=== PATIENT | female | born 1955 | race Caucasian/White ===

== ENCOUNTER 2018-06-24 13:55 | Outpatient (CLI) | payer MEDICARE | END 2018-06-24 13:56 | disposition home or self-care (01) | LOC: BICMAMMO 13:55 | PROVIDERS: ATTEND Physician Assistant | DX: Z12.31 Encounter for screening mammogram for malignant neoplasm of breast (principal); Z80.3 Family history of malignant neoplasm of breast | CPT/HCPCS: 77063; 77067 ==

== ENCOUNTER 2019-04-02 02:16 | Emergency (ER) | payer MEDICARE ==
--- NOTE | 2019-04-02 08:43 | RAD ---
RIGHT ANKLE 3 VIEWS: HISTORY: Fall, pain. COMPARISON: None. FINDINGS: There is marked lateral soft tissue swelling. Chronic changes involving the medial and lateral malle olus. Remote avulsive injuries may be present. No acute fracture is appreciated. There is a lucency with subtle expansion involving the proximal third metatarsal, incompletely evalua roger. Dedicated right foot radiograph is recommended. IMPRESSION: 1. Soft tissue swelling. 2. Remote medial and lateral malleolar avulsive injuries. 3. Lucent lesion with expansion of the left third metatarsal. Dedicated right foot radiograph sererica s is recommended. CODE T POS: OFF
== END 2019-04-02 03:08 | disposition home or self-care (01) ==
LOC: ERS 02:16
DX: S93.401A Sprain of unspecified ligament of right ankle, initial encounter (principal)

== ENCOUNTER 2019-08-03 09:46 | Outpatient (CLI) | payer MEDICARE ==
--- NOTE | 2019-08-03 10:52 | MRI ---
EXAM: Right ankle MRI without contrast: HISTORY: Right ankle pain, sprain right ankle COMPARISON: None. FINDINGS: Multiplanar, multisequence MRI examination of the ankle is performed. The flexor, extensor, and peroneus tendons are intact. There is marked abnormal thickening and increased signal in the anterior talofibular ligament evidenc e for extensive sprain. The posterior talofibular ligament and calcaneofibular ligaments appear intact. Heterogeneity of signal within the deltoid ligament with 2 foci of calcification or ossification evid ence for prior remote deltoid ligament injury/sprain. The Achilles tendon and plantar fascia are unremarkable. Small calcaneal Achilles and plantar enthesophytes without abnormal marrow signal. Sinus Tarsi and spring ligament regions are unremarkable. No acute osteochondral lesion. No evidence for abnormal marrow signal. 0.7 x 1.3 cm diameter circumscribed T1 hypointense, T2 hyperintense focus in the base of the fourth m etatarsal evidence for nonspecific interosseous cyst without adjacent marrow edema. 0.8 x 1.6 cm diameter circumscribed T1 hypointense T2 heterogeneous hyperintense focus in the base of the third metatarsal without adjacent edema evidence for nonspecific interosseous cyst. IMPRESSION: Marked thickening and increased signal of the anterior talofibular ligament evidence for sprain. Heterogeneous signal and ligamentous calcific/ossific foci in the deltoid ligament evidence for remot e sprain. Nonspecific interosseous cystic changes in the base of the third and fourth metatarsals. Other findin gs as above.
== END 2019-08-03 09:47 | disposition home or self-care (01) ==
LOC: BICMRI 09:46
PROVIDERS: ATTEND Orthopaedic Surgery
DX: S93.491D Sprain of other ligament of right ankle, subsequent encounter (principal)

== ENCOUNTER 2019-08-12 10:46 | Outpatient (CLI) | payer MEDICARE ==
--- NOTE | 2019-08-12 13:25 | MMO ---
Bilateral MAMMO Bilat Screen [facility]. CLINICAL HISTORY: Patient is 64 years old and is seen for screening. The patient has the following family history of breast cancer: sister. The patient has no personal history of cancer. VIEWS: The views performed were: bilateral craniocaudal with tomosynthesis and bilateral mediolateral oblique with tomosynthesis. FILMS COMPARED: The present examination has been compared to prior imaging studies performed at [facility] on 10/04/2010, 10/15/2011, 10/22/2012 and 06/24/2018. This study has been interpreted with the assistance of computer-aided detection. MAMMOGRAM FINDINGS: There are scattered fibroglandular densities. There are no suspicious masses, suspicious calcifications, or new areas of architectural distortion. IMPRESSION: THERE IS NO MAMMOGRAPHIC EVIDENCE OF MALIGNANCY. A ROUTINE FOLLOW-UP MAMMOGRAM IN 1 YEAR IS RECOMMENDED. THE RESULTS OF THIS EXAM WERE SENT TO THE PATIENT. ACR BI-RADS Category 1 - Negative MAMMOGRAPHY NOTE: 1. A negative mammogram report should not delay a biopsy if a dominant of clinically suspicious mass is present. 2. Approximately 10% to 15% of breast cancers are not detected by mammography. 3. Adenosis and dense breasts may obscure an underlying neoplasm. Reported by: DIANN GARCIA MD Electonically Signed: [id number]
== END 2019-08-12 10:47 | disposition home or self-care (01) ==
LOC: BICMAMMO 10:46
PROVIDERS: ATTEND Family Medicine
DX: Z12.31 Encounter for screening mammogram for malignant neoplasm of breast (principal); Z80.3 Family history of malignant neoplasm of breast
CPT/HCPCS: 77063; 77067

== ENCOUNTER 2020-08-21 11:54 | Outpatient (CLI) | payer MEDICARE ==
--- NOTE | 2020-08-21 12:28 | MMO ---
Bilateral MAMMO Bilat Screen [facility]. CLINICAL HISTORY: Patient is 65 years old and is seen for screening. The patient has the following family history of breast cancer: sister. The patient has no personal history of cancer. VIEWS: The views performed were: bilateral craniocaudal with tomosynthesis and bilateral mediolateral oblique with tomosynthesis. FILMS COMPARED: The present examination has been compared to prior imaging studies performed at [facility] on 10/15/2011, 10/22/2012, 06/24/2018 and 08/12/2019. This study has been interpreted with the assistance of computer-aided detection. MAMMOGRAM FINDINGS: There are scattered fibroglandular densities. There are no suspicious masses, suspicious calcifications, or new areas of architectural distortion. IMPRESSION: THERE IS NO MAMMOGRAPHIC EVIDENCE OF MALIGNANCY. A ROUTINE FOLLOW-UP MAMMOGRAM IN 1 YEAR IS RECOMMENDED. THE RESULTS OF THIS EXAM WERE SENT TO THE PATIENT. ACR BI-RADS Category 1 - Negative MAMMOGRAPHY NOTE: 1. A negative mammogram report should not delay a biopsy if a dominant of clinically suspicious mass is present. 2. Approximately 10% to 15% of breast cancers are not detected by mammography. 3. Adenosis and dense breasts may obscure an underlying neoplasm. Reported by: ADONIS BOYCE MD Electonically Signed: [id number]
== END 2020-08-21 11:55 | disposition home or self-care (01) ==
LOC: BICMAMMO 11:54
PROVIDERS: ATTEND Physician Assistant
DX: Z12.31 Encounter for screening mammogram for malignant neoplasm of breast (principal); Z80.3 Family history of malignant neoplasm of breast
CPT/HCPCS: 77063; 77067

== ENCOUNTER 2021-08-22 14:51 | Outpatient (CLI) | payer MEDICARE | END 2021-08-22 14:52 | disposition home or self-care (01) | LOC: BICMAMMO 14:51 | PROVIDERS: ATTEND Physician Assistant | DX: Z12.31 Encounter for screening mammogram for malignant neoplasm of breast (principal); Z80.3 Family history of malignant neoplasm of breast | CPT/HCPCS: 77063; 77067 ==

== ENCOUNTER 2021-12-18 09:51 | Outpatient (CLI) | payer MEDICARE | END 2021-12-18 09:52 | disposition home or self-care (01) | LOC: BICMAMMO 09:51 | PROVIDERS: ATTEND Physician Assistant | DX: Z13.820 Encounter for screening for osteoporosis (principal); Z78.0 Asymptomatic menopausal state | CPT/HCPCS: 77080 ==

== ENCOUNTER 2022-07-14 12:28 | Outpatient (CLI) | payer MEDICAID, MEDICARE | END 2022-07-14 12:29 | disposition home or self-care (01) | LOC: BICRAD 12:28 | PROVIDERS: ATTEND Physician Assistant | DX: J06.9 Acute upper respiratory infection, unspecified (principal); J45.40 Moderate persistent asthma, uncomplicated | CPT/HCPCS: 71046 ==

== ENCOUNTER 2023-05-13 06:29 | Day surgery (SDC) | payer MEDICARE ==
[2023-05-11 11:14] VITALS: BMI 45.1
[2023-05-11 11:40] LABS: Hemoglobin 13.3 g/dL (12.0-15.5); Mean Corpuscular HGB CONC 32.4 g/dL (32.0-36.0); Mean Corpuscular Hemoglobin 29.6 pg (27.0-33.0); Mean Corpuscular Volume 91.1 fl (81.6-98.3); Mean Platelet Volume 9.6 fl (7.4-10.4); Platelet Count 269 10x3/uL (150-450); RBC Distribution Width 12.3 % (11.5-14.5); White Blood Cell (WBC) Count 6.7 10x3/uL (3.5-10.5)
[2023-05-11 11:59] LABS: INR-International Normal Ratio 1.1; PTT 33.6 sec (22.0-33.0); Prothrombin Time 11.3 sec (9.5-12.1)
[2023-05-11 13:10] LABS: ALT (SGPT) 36 U/L (8-55); AST (SGOT) 30 U/L (5-34); Albumin 4.3 g/dL (3.4-4.8); Alkaline Phosphatase 119 U/L (40-110); Anion Gap 14 mmol/L (10-20); BUN (Urea Nitrogen) 17 mg/dL (9.8-20.1); Bilirubin, Direct 0.2 mg/dL (0.1-0.3); Bilirubin, Total 0.5 mg/dL (0.2-1.2); Calc. Creatinine Clearance 109 mL/min (70-130); Calcium 9.3 mg/dL (7.8-10.44); Carbon Dioxide 29 mmol/L (23-31); Chloride 102 mmol/L (98-107); Estimated GFR 66; Glucose 97 mg/dL (80-115); Potassium 4.6 mmol/L (3.5-5.1); Protein, Total 7.3 g/dL (5.8-8.1); Sodium 140 mmol/L (136-145)
[2023-05-13] MEDS ORDERED: fentaNYL 50 mcg/mL 1 mL Vial ONE ×3 (07:04→12:54)
[2023-05-13] MEDS ORDERED: Heparin 10,000 UNITS/ 10 ML VIAL ONE (07:11)
[2023-05-13] MEDS ORDERED: Heparin 25,000 units/D5W 500 ML ONE (07:11)
[2023-05-13] MEDS ORDERED: fentaNYL PF 100 MCG/2 ML SYRINGE ONE (07:12)
[2023-05-13] MEDS ORDERED: Famotidine/PF 20 mg/2ml Vial ONE (08:03)
[2023-05-13] MEDS ORDERED: ePHEDrine Sulfate 50 MG/10 ML VIAL ONE (08:07)
[2023-05-13] MEDS ORDERED: PROPOFOL 200 MG/20 ML VIAL ONE (08:07)
[2023-05-13] MEDS ORDERED: Ondansetron PF 4 MG/2 ML Vial ONE (08:07)
[2023-05-13] MEDS ORDERED: PHENYLEPHRINE-NS 100 MCG/ML 10 ML SYRINGE ONE (08:07)
[2023-05-13] MEDS ORDERED: Dexamethasone 20 MG/5 ML VIAL ONE (08:07)
[2023-05-13] MEDS ORDERED: Rocuronium Bromide 10 MG/ML (10ML VIAL) ONE (08:07)
[2023-05-13] MEDS ORDERED: Lidocaine 1% PF 5 ML VIAL ONE (08:07)
[2023-05-13] MEDS ORDERED: SUGAMMADEX SODIUM 200 MG/2 ML VIAL ONE ×2 (09:27→11:12)
[2023-05-13] MEDS ORDERED: Isoproterenol 0.2 MG/1 ML AMP ONE (10:11)
[2023-05-13] MEDS ORDERED: Protamine Sulfate 50 MG/5 ML VIAL ONE (11:12)
[2023-05-13] MEDS ORDERED: Amiodarone 150 MG/3 ML VIAL ONE (11:25)
== END 2023-05-13 15:45 | disposition home or self-care (01) ==
LOC: SDC 06:29
PROVIDERS: ATTEND Internal Medicine Cardiovascular Disease
DX: I48.0 Paroxysmal atrial fibrillation (principal); I10 Essential (primary) hypertension; E66.01 Morbid (severe) obesity due to excess calories; Z68.42 Body mass index [BMI] 45.0-49.9, adult; Z79.82 Long term (current) use of aspirin; Z88.0 Allergy status to penicillin; Z87.891 Personal history of nicotine dependence; Z79.01 Long term (current) use of anticoagulants; Z79.899 Other long term (current) drug therapy
CPT/HCPCS: 80048; 80076; 85027; 85347 ×2; 85610; 85730; 93005; 93623; 93656; 93657; C1732 ×3; C1759; C1760; C1894 ×2; J3010; 93010; J0282; J1100; J1644; J2405; J2704; J2720; S0028

== ENCOUNTER 2023-11-20 10:32 | Observation (INO) | payer MEDICARE, MEDICAID ==
[2023-11-20 11:25] LABS: #Basophils 0.1 thou/uL (0.0-0.2); #Eosinphils 0.3 thou/uL (0.0-0.7); #Monocytes 0.8 thou/uL (0.11-0.59); #Neutrophils 6.1 thou/uL (1.40-6.50); %Basophils 0.9 % (0.0-1.0); %Eosinophils 2.6 % (0.0-10.0); %Lymphocytes 24.9 % (21.0-51.0); %Monocytes 8.3 % (0.0-10.0); %Neutrophils 62.9 % (42.0-75.0); Hematocrit 43.1 % (36.0-47.0); Hemoglobin 13.9 g/dL (12.0-16.0); Mean Corpuscular HGB CONC 32.3 g/dL (32.0-36.0); Mean Platelet Volume 9.1 fL (7.4-10.4); Platelet Count 294 10x3/uL (130-400); RBC Distribution Width 13.1 % (11.5-14.5); Red Blood Cell (RBC) Count 4.79 mill/uL (4.20-5.40); White Blood Cell (WBC) Count 9.7 10x3/uL (4.8-10.8)
[2023-11-20 11:37] LABS: ALT (SGPT) 22 U/L (8-55); AST (SGOT) 16 U/L (5-34); Alkaline Phosphatase 105 U/L (40-110); Anion Gap 16 mmol/L (10-20); BUN (Urea Nitrogen) 24 mg/dL (9.8-20.1); Bilirubin, Total 0.6 mg/dL (0.2-1.2); Calc. Creatinine Clearance 0 mL/min (70-130); Calcium 9.2 mg/dL (7.8-10.44); Carbon Dioxide 21 mmol/L (23-31); Chloride 103 mmol/L (98-107); Estimated GFR 49; Globulin 3.5 g/dL (2.4-3.5); Glucose 119 mg/dL (80-115); Lipase 17 U/L (8-78); Potassium 4.1 mmol/L (3.5-5.1); Protein, Total 7.5 g/dL (5.8-8.1); Sodium 136 mmol/L (136-145)
[2023-11-20 11:41] LABS: Troponin I Less than 0.010 ng/mL (< 0.028)
[2023-11-20 11:48] LABS: Bilirubin Negative (Negative); Blood, Urine Negative (Negative); Glucose, Urine (Dipstick) Negative (Negative); Ketone, Urine Trace mg/dL (Negative); Leukocyte Negative (Negative); Nitrite Negative (Negative); Protein, Urine (Dipstick) Negative (Neg-Trace); Specific Gravity, Urine 1.025 (1.005-1.030); Urobilinogen 0.2 mg/dL (Less than 2)
[2023-11-20 11:51] LABS: Clarity Clear (Clear)
[2023-11-20 12:08] LABS: Bacteria/HPF 2+ HPF (None Seen); CAUTI Indications for Culture Alt mental st,lethar; RBC/HPF None Seen HPF (0-3)
[2023-11-20 12:10] LABS: Urine Culture Reflex No No
[2023-11-20] MEDS ORDERED: Ondansetron PF 4 MG/2 ML Vial IVP PRN (14:41)
[2023-11-20] MEDS ORDERED: Ondansetron ODT 4 MG TAB PO PRN (14:41)
[2023-11-20] MEDS ORDERED: Acetaminophen 325 MG TAB PO PRN (14:41)
[2023-11-20] MEDS ORDERED: Acetaminophen 650 MG Suppository PR PRN (14:41)
[2023-11-20 16:49] LABS: Troponin I Less than 0.010 ng/mL (< 0.028)
[2023-11-20 17:59] LABS: Troponin I 0.016 ng/mL (< 0.028)
[2023-11-20] MEDS: Apixaban 5 MG TAB PO SCH (20:26)
[2023-11-20] MEDS: Sodium Chloride 0.9% 1,000 ML IV SCH ×2 (20:33→21:39)
[2023-11-20 20:48] VITALS: BMI 45.1
[2023-11-20] MEDS ORDERED: Aspirin 81 mg Enteric Coated Tablet PO SCH (21:00)
[2023-11-20] MEDS ORDERED: Atorvastatin Calcium 10 MG TAB PO SCH (21:00)
[2023-11-20] MEDS ORDERED: hydrALAZINE 25 MG TAB PO SCH (21:30)
[2023-11-21] MEDS: Sodium Chloride 0.9% 1,000 ML IV SCH ×2 (03:50→08:03)
[2023-11-21] MEDS ORDERED: Levothyroxine Sodium 100 MCG TAB PO SCH (06:00)
[2023-11-21 06:37] LABS: #Basophils 0.1 thou/uL (0.0-0.2); #Eosinphils 0.3 thou/uL (0.0-0.7); #Monocytes 0.8 thou/uL (0.11-0.59); #Neutrophils 4.6 thou/uL (1.40-6.50); %Eosinophils 3.7 % (0.0-10.0); %Lymphocytes 34.3 % (21.0-51.0); %Monocytes 9.4 % (0.0-10.0); %Neutrophils 51.2 % (42.0-75.0); Hemoglobin 13.2 g/dL (12.0-16.0); Mean Corpuscular HGB CONC 31.4 g/dL (32.0-36.0); Mean Corpuscular Hemoglobin 28.9 pg (27.0-31.0); Mean Corpuscular Volume 92.1 fl (78.0-98.0); Mean Platelet Volume 9.5 fL (7.4-10.4); Platelet Count 272 10x3/uL (130-400); RBC Distribution Width 13.2 % (11.5-14.5); Red Blood Cell (RBC) Count 4.56 mill/uL (4.20-5.40); White Blood Cell (WBC) Count 8.9 10x3/uL (4.8-10.8)
[2023-11-21 07:06] LABS: Anion Gap 14 mmol/L (10-20); BUN (Urea Nitrogen) 17 mg/dL (9.8-20.1); Calc. Creatinine Clearance 102 mL/min (70-130); Calcium 8.7 mg/dL (7.8-10.44); Carbon Dioxide 26 mmol/L (23-31); Chloride 102 mmol/L (98-107); Estimated GFR 61; Glucose 92 mg/dL (80-115); Potassium 3.9 mmol/L (3.5-5.1); Sodium 138 mmol/L (136-145)
[2023-11-21] MEDS: Apixaban 5 MG TAB PO SCH (08:08)
[2023-11-21] MEDS ORDERED: Sertraline 100 MG TAB PO SCH (09:00)
[2023-11-21 13:04] LABS: Magnesium 2.4 mg/dL (1.6-2.6)
[2023-11-21 15:57] VITALS: BP 145/68; TEMP 98.8
== END 2023-11-21 18:10 | disposition home or self-care (01) ==
LOC: ERS 10:32 → ERHOLD 13:22 → 2SW 19:59
PROVIDERS: ADMIT Hospitalist; ATTEND Internal Medicine
PROC: B24BZZZ Ultrasonography of Heart with Aorta (ICD-10-PCS; principal; 2023-11-21)
DX: E86.0 Dehydration (principal); I48.0 Paroxysmal atrial fibrillation; I12.9 Hypertensive chronic kidney disease with stage 1 through stage 4 chronic kidney disease, or unspecified chronic kidney disease; N18.2 Chronic kidney disease, stage 2 (mild); E03.9 Hypothyroidism, unspecified; E78.5 Hyperlipidemia, unspecified; F41.9 Anxiety disorder, unspecified; E66.01 Morbid (severe) obesity due to excess calories; I35.0 Nonrheumatic aortic (valve) stenosis; Z98.890 Other specified postprocedural states; Z79.01 Long term (current) use of anticoagulants; Z79.82 Long term (current) use of aspirin; Z79.890 Hormone replacement therapy; Z79.899 Other long term (current) drug therapy; Z88.0 Allergy status to penicillin; Z88.2 Allergy status to sulfonamides; Z88.1 Allergy status to other antibiotic agents; Z91.040 Latex allergy status; Z68.42 Body mass index [BMI] 45.0-49.9, adult; Z88.8 Allergy status to other drugs, medicaments and biological substances
CPT/HCPCS: 71045; 80048; 80053; 81001; 83690; 83735; 83880; 84484 ×2; 85025 ×2; 93005; 93306; 96360; 99285; G0378 ×2; 36415; J7050

== ENCOUNTER 2024-01-20 07:13 | Day surgery (SDC) | payer MEDICARE ==
[2024-01-15 11:06] VITALS: BMI 45.2
[2024-01-15 11:49] LABS: Hematocrit 40.5 % (34.9-44.5); Hemoglobin 13.4 g/dL (12.0-15.5); Mean Corpuscular HGB CONC 33.1 g/dL (32.0-36.0); Mean Corpuscular Hemoglobin 29.3 pg (27.0-33.0); Mean Corpuscular Volume 88.6 fl (81.6-98.3); Mean Platelet Volume 9.6 fl (7.4-10.4); Platelet Count 297 10x3/uL (150-450); RBC Distribution Width 12.8 % (11.5-14.5); Red Blood Cell (RBC) Count 4.57 10x6/uL (3.90-5.03); White Blood Cell (WBC) Count 6.4 10x3/uL (3.5-10.5)
[2024-01-15 12:07] LABS: INR-International Normal Ratio 1.1; PTT 33.7 sec (22.0-33.0); Prothrombin Time 11.4 sec (9.5-12.1)
[2024-01-15 13:19] LABS: Anion Gap 13 mmol/L (10-20); BUN (Urea Nitrogen) 16 mg/dL (9.8-20.1); Calc. Creatinine Clearance 99 mL/min (70-130); Calcium 9.2 mg/dL (7.8-10.44); Carbon Dioxide 28 mmol/L (23-31); Chloride 100 mmol/L (98-107); Estimated GFR 58; Glucose 96 mg/dL (80-115); Potassium 4.3 mmol/L (3.5-5.1); Sodium 137 mmol/L (136-145)
[2024-01-20] MEDS ORDERED: Protamine Sulfate 50 MG/5 ML VIAL ONE ×2 (09:08→13:45)
[2024-01-20] MEDS ORDERED: Isoproterenol 0.2 MG/1 ML AMP ONE ×2 (09:08→11:27)
[2024-01-20] MEDS ORDERED: Heparin 25,000 units/D5W 500 ML ONE (09:08)
[2024-01-20] MEDS ORDERED: Heparin 10,000 UNITS/ 10 ML VIAL ONE (09:08)
[2024-01-20] MEDS ORDERED: PHENYLEPHRINE-NS 100 MCG/ML 10 ML SYRINGE ONE (10:39)
[2024-01-20] MEDS ORDERED: Lidocaine 1% PF 5 ML VIAL ONE (10:39)
[2024-01-20] MEDS ORDERED: PROPOFOL 200 MG/20 ML VIAL ONE (10:39)
[2024-01-20] MEDS ORDERED: SUCCINYLCHOLINE/SOD CL,ISO/PF 200 MG/10 ML SYRINGE FS ONE (10:39)
[2024-01-20] MEDS ORDERED: fentaNYL 50 mcg/mL 1 mL Vial ONE (14:58)
== END 2024-01-20 18:25 | disposition home or self-care (01) ==
LOC: SDC 07:13
PROVIDERS: ATTEND Internal Medicine Cardiovascular Disease
PROC: 02583ZZ Destruction of Conduction Mechanism, Percutaneous Approach (ICD-10-PCS; principal; 2024-01-20)
PROC: 4A023FZ Measurement of Cardiac Rhythm, Percutaneous Approach (ICD-10-PCS; 2024-01-20)
DX: I48.0 Paroxysmal atrial fibrillation (principal); I10 Essential (primary) hypertension; Z88.0 Allergy status to penicillin; Z88.1 Allergy status to other antibiotic agents; Z88.2 Allergy status to sulfonamides; Z91.040 Latex allergy status; Z91.013 Allergy to seafood; Z91.048 Other nonmedicinal substance allergy status; Z87.891 Personal history of nicotine dependence; Z86.16 Personal history of COVID-19; Z79.01 Long term (current) use of anticoagulants; Z79.899 Other long term (current) drug therapy
CPT/HCPCS: 80048; 85027; 85347 ×2; 85610; 85730; 93005; 93623; 93655; 93656; 93657; C1732 ×2; C1759; C1760; C1884; C1893; C1894 ×2; J3010; J1644; J2704; J2720

== ENCOUNTER 2024-04-06 14:41 | Outpatient (CLI) | payer MEDICARE | END 2024-04-06 14:42 | disposition home or self-care (01) | LOC: BICMAMMO 14:41 | PROVIDERS: ATTEND Family Medicine | DX: Z12.31 Encounter for screening mammogram for malignant neoplasm of breast (principal); Z13.820 Encounter for screening for osteoporosis; Z80.3 Family history of malignant neoplasm of breast; Z78.0 Asymptomatic menopausal state | CPT/HCPCS: 77063; 77067; 77080 ==

== ENCOUNTER 2025-09-21 15:27 | Outpatient (CLI) | payer MEDICAID, MEDICARE | END 2025-09-21 15:28 | disposition home or self-care (01) | LOC: BICMAMMO 15:27 | PROVIDERS: ATTEND Family Medicine | DX: Z12.31 Encounter for screening mammogram for malignant neoplasm of breast (principal); Z80.3 Family history of malignant neoplasm of breast | CPT/HCPCS: 77063; 77067 ==